=== PATIENT | male | born 1950 | race Two or more races ===

== ENCOUNTER → 2017-09-08 | Emergency (ER) | payer OTHER ==
[~2017-09-08] VITALS: Ht 182.9 cm; Wt 92.5 kg
[~2017-09-08] MED LIST: AIRBORNE EFFER1 EACH PO; COZAAR50 MG; CRESTOR10 MG; FLONASE ALLERG9.9 ML NASAL; KETO10TA2 PO; ZITHROMAX500 MG PO
== END | disposition home or self-care (01) ==
LOC: ER 22:12
DX: R50.9 Fever, unspecified (principal); J32.8 Other chronic sinusitis

== ENCOUNTER 2020-09-14 09:44 | Outpatient (CLI) | payer OTHER, BC | END 2020-09-14 09:59 | disposition home or self-care (01) | LOC: SONOGRAMA 09:44 → MAMO-SONO 10:00 | PROVIDERS: ATTEND Family Medicine | DX: R10.11 Right upper quadrant pain (principal); R07.89 Other chest pain ==